=== PATIENT | female | born 1980 ===

== ENCOUNTER 2019-11-28 13:19 | Inpatient (IN) ==
[2019-11-28] MEDS ORDERED: diphenhydrAMINE 50 MG/1 ML VIAL IV PRN (13:59)
[2019-11-28] MEDS ORDERED: HydrOXYzine PAMOATE 25 MG CAPSULE PO PRN (13:59)
[2019-11-28] MEDS ORDERED: METHOCARBAMOL 750 MG TABLET PO PRN (13:59)
[2019-11-28] MEDS ORDERED: THIAMINE INJ 100 MG, FOLIC ACID INJ 1 MG, MULTIVITAMIN INJ 10 ML in SODIUM CHLORIDE 0.9... IV ONE (13:59)
[2019-11-28] MEDS ORDERED: hydrALAZINE 20 MG/1 ML VIAL IV PRN (14:02)
[2019-11-28] MEDS ORDERED: DOCUSATE SODIUM 100 MG CAPSULE PO PRN (14:02)
[2019-11-28] MEDS ORDERED: ACETAMINOPHEN 325 MG TABLET PO PRN (14:02)
[2019-11-28] MEDS ORDERED: ONDANSETRON 4 MG/2 ML VIAL IV PRN (14:02)
[2019-11-28 14:43] LABS: Basophils # 0.1 10*3/uL (0.0-0.2); Basophils % 0.7 % (0.0-0.8); Eosinophils # 0.1 10*3/uL (0.0-0.87); Eosinophils % 1.7 % (0.00-10.9); Hematocrit 37.5 VOL% (35.7-47.0); Hemoglobin 12.2 GM/DL (12.0-16.0); Immature Granulocytes % 0.3 %; Immature Granulocytes Absolute 0.02 #; Lymphocytes # 2.2 10*3/uL (1.4-4.0); Mean Corpuscular HGB Conc 32.5 GM/DL (32-36); Mean Corpuscular Volume 95.4 FL (87-102); Mean Platelet Volume 9.8 FL (9.6-12.0); Neutrophils % 59.3 % (38.7-73.9); Platelet Count 230 T/CUMM (130-400); Red Blood Count 3.93 MC/CUMM (3.8-5.5); Red Cell Distribution Width 12.6 % (9.3-17.3)
[2019-11-28] MEDS: LORazepam 1 MG TABLET PO SCH ×4 (14:52→21:40)
[2019-11-28] MEDS: MIRTAZAPINE 15 MG TABLET PO SCH (14:53)
[2019-11-28 15:23] LABS: Alanine Aminotransferase 19 U/L (13-56); Albumin 3.6 G/DL (3.4-5.0); Alkaline Phosphatase 60 U/L (45-117); Aspartate Amino Transferase 12 U/L (0-37); Bilirubin,Total < 0.39 MG/DL (0.2-1.0); Blood Urea Nitrogen 12 MG/DL (7-18); Calcium 8.2 MG/DL (8.5-10.1); Estimated Glom Filtration Rate 105 ML/MIN; Glucose 114 MG/DL (74-106); Osmolality,Calculated 277.5 MOS/KG (273-304); Total Protein 6.4 G/DL (6.4-8.3)
[2019-11-28] MEDS: cloNIDine 0.1 MG TABLET PO SCH ×2 (17:59→21:02)
[2019-11-28] MEDS ORDERED: NICOTINE 21 MG/24 HR PATCH TRANSDERM PRN (18:15)
[2019-11-28] MEDS: OXcarbazepine 300 MG TABLET PO SCH (21:02)
[2019-11-29] MEDS: cloNIDine 0.1 MG TABLET PO SCH ×6 (00:12→20:42)
[2019-11-29] MEDS: LORazepam 1 MG TABLET PO SCH ×5 (02:24→20:42)
[2019-11-29] MEDS: MULTIVITAMIN (CENTRUM) TABLET PO SCH (09:02)
[2019-11-29] MEDS: OXcarbazepine 300 MG TABLET PO SCH ×2 (09:02→20:42)
[2019-11-29] MEDS: MIRTAZAPINE 15 MG TABLET PO SCH (09:02)
[2019-11-29] MEDS: SODIUM CHLORIDE 0.9% 1,000 ML IV SCH ×2 (14:51→22:20)
[2019-11-29] MEDS: RIVAROXABAN 10 MG TABLET PO SCH (15:20)
[2019-11-29] MEDS ORDERED: ENOXAPARIN 40 MG/0.4 ML SYRINGE SUBCUT SCH (15:30)
[2019-11-29] MEDS: PANTOPRAZOLE 40 MG TABLET PO SCH (17:35)
[2019-11-30] MEDS: cloNIDine 0.1 MG TABLET PO SCH ×6 (00:51→20:19)
[2019-11-30] MEDS: LORazepam 1 MG TABLET PO SCH ×4 (01:00→21:12)
[2019-11-30 05:09] LABS: Basophils # 0.1 10*3/uL (0.0-0.2); Basophils % 0.7 % (0.0-0.8); Eosinophils # 0.2 10*3/uL (0.0-0.87); Eosinophils % 2.6 % (0.00-10.9); Hematocrit 37.1 VOL% (35.7-47.0); Immature Granulocytes % 0.1 %; Immature Granulocytes Absolute 0.01 #; Lymphocytes # 2.7 10*3/uL (1.4-4.0); Mean Corpuscular HGB Conc 32.3 GM/DL (32-36); Mean Corpuscular Volume 95.6 FL (87-102); Mean Platelet Volume 9.9 FL (9.6-12.0); Monocytes % 8.2 % (1.7-12.7); Neutrophils % 51.4 % (38.7-73.9); Platelet Count 208 T/CUMM (130-400); Red Blood Count 3.88 MC/CUMM (3.8-5.5); Red Cell Distribution Width 12.8 % (9.3-17.3); White Blood Count 7.2 T/CUMM (4-12)
[2019-11-30 05:28] LABS: Calcium 8.5 MG/DL (8.5-10.1); Osmolality,Calculated 277.4 MOS/KG (273-304)
[2019-11-30] MEDS: MULTIVITAMIN (CENTRUM) TABLET PO SCH (08:56)
[2019-11-30] MEDS: PANTOPRAZOLE 40 MG TABLET PO SCH (08:57)
[2019-11-30] MEDS: OXcarbazepine 300 MG TABLET PO SCH ×2 (08:57→21:12)
[2019-11-30] MEDS: MIRTAZAPINE 15 MG TABLET PO SCH (08:58)
[2019-11-30] MEDS: RIVAROXABAN 10 MG TABLET PO SCH (09:35)
[2019-11-30] MEDS: ENOXAPARIN 40 MG/0.4 ML SYRINGE SUBCUT SCH (11:01)
[2019-11-30 11:53] LABS: Apearance,Urine CLEAR (Clear); Bilirubin,Urine Negative (Negative); Blood, Urine Negative (Negative); Glucose,Urine (UA) Negative (Negative); Ketones,Urine Negative (Negative); Mucus,Urine Occasional /LPF (Occasional); Nitrite,Urine Negative (Negative); Protein,Urine Negative; RBC,Urine 1 /HPF (0-4); Squamous Epithelial Cell,Urine Occasional /HPF (0-10); Urine Color Yellow (Yellow); Urine Urobilinogen < 2.0 EU/DL (0.2-1.0)
[2019-11-30 12:14] LABS: Barbiturates Screen,Urine Negative (Negative); Benzodiazepines Screen,Urine Negative (Negative); Cannabinoid Screen,Urine Negative (Negative); Opiate Screen,Urine Negative (Negative); Phencyclidine Screen,Urine Negative (Negative)
[2019-11-30] MEDS: SODIUM CHLORIDE 0.9% 1,000 ML IV SCH (12:42)
[2019-12-01] MEDS: cloNIDine 0.1 MG TABLET PO SCH ×3 (00:32→08:17)
[2019-12-01] MEDS: SODIUM CHLORIDE 0.9% 1,000 ML IV SCH (02:03)
[2019-12-01] MEDS: LORazepam 1 MG TABLET PO SCH (05:27)
[2019-12-01 05:31] LABS: Basophils # 0.1 10*3/uL (0.0-0.2); Basophils % 0.6 % (0.0-0.8); Eosinophils # 0.2 10*3/uL (0.0-0.87); Eosinophils % 2.8 % (0.00-10.9); Hematocrit 36.9 VOL% (35.7-47.0); Hemoglobin 12.3 GM/DL (12.0-16.0); Immature Granulocytes % 0.4 %; Immature Granulocytes Absolute 0.03 #; Lymphocytes # 2.5 10*3/uL (1.4-4.0); Lymphocytes % 31.6 % (21.3-54.2); Mean Corpuscular HGB Conc 33.3 GM/DL (32-36); Mean Corpuscular Volume 92.7 FL (87-102); Mean Platelet Volume 10.6 FL (9.6-12.0); Monocytes % 7.6 % (1.7-12.7); Platelet Count 219 T/CUMM (130-400); Red Blood Count 3.98 MC/CUMM (3.8-5.5); Red Cell Distribution Width 12.8 % (9.3-17.3)
[2019-12-01 06:10] LABS: Calcium 8.1 MG/DL (8.5-10.1); Osmolality,Calculated 279.4 MOS/KG (273-304)
[2019-12-01] MEDS: MULTIVITAMIN (CENTRUM) TABLET PO SCH (08:16)
[2019-12-01] MEDS: OXcarbazepine 300 MG TABLET PO SCH (08:16)
[2019-12-01] MEDS: PANTOPRAZOLE 40 MG TABLET PO SCH (08:17)
[2019-12-01 08:21] VITALS: BP 96/82
[2019-12-01] MEDS: ENOXAPARIN 40 MG/0.4 ML SYRINGE SUBCUT SCH (09:41)
== END 2019-12-01 11:53 | disposition home or self-care (01) | DRG 897 ==
LOC: N.4E 13:28
PROVIDERS: ADMIT Internal Medicine; ATTEND Internal Medicine